=== PATIENT | female | born 2000 | race Caucasian/White ===

== ENCOUNTER 2022-02-02 13:19 | Emergency (ER) | payer MEDICAID ==
[~2022-02-02] VITALS: Ht 162.6 cm; Wt 63.6 kg
[~2022-02-02 13:19] MED LIST: ACET-3685
[2022-02-02] MEDS ORDERED: DOCO200C5 PO (13:28)
[2022-02-02] MEDS ORDERED: SODIUM CHLORIDE 0.9% 1,000 ML IV ONE (14:15)
[2022-02-02] MEDS ORDERED: ONDANSETRON HCL 4 MG/2 ML VIAL IVP ONE (14:15)
[2022-02-02 14:35] LABS: BASOPHILS % (AUTO) 0.4 % (0.0-2.0); EOSINOPHILS % (AUTO) 0.6 % (1.0-6.0); HEMATOCRIT 41.3 % (36-46); HEMOGLOBIN 14.5 g/dL (12.0-16.0); LYMPHOCYTES # (AUTO) 1.7 K/uL (1.0-4.8); MEAN CORPUSCULAR HEMOGLOBIN 29.8 pg (26.0-34.0); MEAN CORPUSCULAR VOLUME 85 fL (80-100); MONOCYTES # (AUTO) 0.7 K/uL (0.1-1.0); MONOCYTES % (AUTO) 5.2 % (2.0-9.0); NEUTROPHILS # (AUTO) 10.3 K/uL (1.8-7.7); NEUTROPHILS % (AUTO) 80.8 % (40.0-70.0); PLATELET COUNT (AUTO) 379 K/uL (150-450); RED BLOOD CELL COUNT(AUTO) 4.86 MIL/uL (4.00-5.20); RED CELL DISTRIBUTION WIDTH 13.1 % (11.5-14.5)
[2022-02-02 15:34] LABS: ANION GAP 13 mmol/L (8-16); CARBON DIOXIDE 28 mmol/L (22-29); CHLORIDE 97 mmol/L (98-107); CREATININE 0.74 mg/dL (0.60-1.30); GLUCOSE,RANDOM 104 mg/dL (70-110); SODIUM SERUM 138 mmol/L (136-145); UREA NITROGEN, BLOOD 17 mg/dL (7-18)
[2022-02-02 15:40] LABS: GLOMERULAR FILTR. RATE CALC > 60 mL/min (>60); POTASSIUM 2.9 mmol/L (3.5-5.1)
[2022-02-02] MEDS ORDERED: POTASSIUM CHL 20 MEQ/0.9% NS 1,000 ML IV ONE (15:45)
[2022-02-02] MEDS ORDERED: POTASSIUM CHLORIDE 20 MEQ ER TABLET PO ONE (15:45)
[2022-02-02] MEDS ORDERED: DOXY1TAB3 PO (17:28)
[2022-02-02 17:29] VITALS: BP 126/81
== END 2022-02-02 18:14 | disposition home or self-care (01) ==
LOC: EMS 13:31
DX: O21.1 Hyperemesis gravidarum with metabolic disturbance (principal); Z3A.09 9 weeks gestation of pregnancy
CPT/HCPCS: 99285; 96365; 96361; 96375; 80048; 85025; 36415; J2405; J7030

== ENCOUNTER 2022-02-24 08:49 | Emergency (ER) | payer MEDICAID ==
[~2022-02-24] VITALS: Ht 162.6 cm; Wt 59.1 kg
[~2022-02-24 08:49] MED LIST changes: -ACET-3685; +DOCO200C5 PO; +DOXY1TAB3 PO
[2022-02-24 08:55] VITALS: BP 117/65
[2022-02-24] MEDS ORDERED: DOXY1TAB3 PO (09:41)
== END 2022-02-24 10:22 | disposition home or self-care (01) ==
LOC: EMS 08:54
DX: O21.0 Mild hyperemesis gravidarum (principal); Z3A.12 12 weeks gestation of pregnancy; Z76.0 Encounter for issue of repeat prescription
CPT/HCPCS: 99282; Z7502

== ENCOUNTER 2023-07-25 14:54 | Emergency (ER) | payer MEDICAID, OTHER ==
[~2023-07-25] VITALS: Ht 162.6 cm; Wt 72.7 kg
[2023-07-25 16:13] LABS: COVID AG,FIA SOURCE NASAL SWAB
[2023-07-25 16:33] LABS: INFLUENZA TYPE A NEGATIVE FOR TYPE A (NEGATIVE); INFLUENZA TYPE B NEGATIVE FOR TYPE B (NEGATIVE); SARS-COV2 (COVID) ANTIGEN,FIA Negative (Negative)
[2023-07-25 17:07] VITALS: TEMP 98.4
[2023-07-25] MEDS: IPRATROPIUM BROMIDE 0.5 MG/2.5 ML NEB SOLUTION NEB ONE ×2 (18:33→19:44)
[2023-07-25] MEDS: ALBUTEROL SULFATE 2.5 MG/0.5 ML NEB SOLUTION NEB ONE (18:33)
[2023-07-25 18:35] VITALS: PULSE 81; RESP 18; O2SAT 94
[2023-07-25 18:50] VITALS: PULSE 115; RESP 20; O2SAT 98
[2023-07-25] MEDS: PredniSONE 20 MG TABLET PO ONE (18:53)
[2023-07-25] MEDS: GuaiFENesin/D-METHORPHAN [SUGAR-FREE] 200-20MG/10 ML SYRUP UDCUP PO ONE (18:53)
[2023-07-25] MEDS: ACETAMINOPHEN 500 MG TABLET PO ONE (18:53)
[2023-07-25] MEDS ORDERED: 0.9% SODIUM CHLORIDE 5 ML NEB SOLUTION NEB ONE (19:43)
[2023-07-25] MEDS: ALBUTEROL SULFATE 2.5 MG/0.5 ML 5 ML NEB SOLUTION NEB ONE (19:44)
[2023-07-25 19:45] VITALS: PULSE 113; RESP 20; O2SAT 97
[2023-07-25] MEDS ORDERED: EPINEPHrine 1:1,000 [1 MG/ML] VIAL SQ ONE (19:45)
[2023-07-25 21:00] VITALS: PULSE 120; RESP 20; O2SAT 99
[2023-07-25] MEDS ORDERED: ALBU2.5V39 NEB (21:35)
[2023-07-25] MEDS ORDERED: ALBU18HF12 IH (21:35)
[2023-07-25] MEDS ORDERED: PRED-554 PO (21:35)
[2023-07-25] MEDS ORDERED: GUAIFDM PO (21:35)
[2023-07-25 22:16] VITALS: BP 129/76; PULSE 101; RESP 18
== END 2023-07-25 22:29 | disposition home or self-care (01) ==
LOC: EMS 14:54
DX: J45.901 Unspecified asthma with (acute) exacerbation (principal); Z20.822 Contact with and (suspected) exposure to COVID-19
CPT/HCPCS: 99285; 71045; 87426; 84703; 87804; 94640; 93005; J0171; J7512; Q9967; 94644; J7613

== ENCOUNTER 2025-01-27 18:58 | Emergency (ER) | payer SELFPAY ==
[~2025-01-27] VITALS: Ht 167.6 cm; Wt 72.7 kg
[~2025-01-27 18:58] MED LIST changes: +ALBU18HF12 IH; +ALBU2.5V39 NEB; -DOCO200C5 PO; -DOXY1TAB3 PO; +GUAIFDM PO; +PRED-554 PO
[2025-01-27 19:06] VITALS: BP 125/81; PULSE 93; RESP 18; TEMP 97.5; O2SAT 91
== END 2025-01-27 23:09 | disposition left against medical advice (07) ==
LOC: EMS 18:58
DX: M25.572 Pain in left ankle and joints of left foot (principal); Z53.21 Procedure and treatment not carried out due to patient leaving prior to being seen by health care provider
CPT/HCPCS: 99281; 73610-TC; Z7502